=== PATIENT | male | born 1975 | race Caucasian/White ===

== ENCOUNTER 2020-02-23 08:09 | Day surgery (SDC) | payer OTHER ==
[~2020-02-23] VITALS: Ht 182.9 cm; Wt 110.5 kg
[~2020-02-23 08:09] MED LIST: AMLO5 PO; AMOCLA875 PO; ASPI81EC PO; Accupril20 MG PO; BUPRENORPHIN-N1 EACH SL; CARV25 PO; CETI5 PO; CHOL10002; Crestor20 MG PO; Crestor40 MG PO; FEBU40TA; FEBU40TA PO; GABA300 PO; IBUP800 PO; METO50 PO; NITR.6SL SL; OXYC10TA19; Oxycodone HCl5 M1; Percocet 5-3251 EACH PO; QUIN10 PO; ROSU10TA PO; VITAMIN D22000 UNIT PO; ZYRTEC10 M1 PO
== END 2020-02-23 10:05 | disposition home or self-care (01) ==
LOC: ORSCSDS 08:09
PROVIDERS: Internal Medicine Gastroenterology
PROC: 0DJD8ZZ Inspection of Lower Intestinal Tract, Via Natural or Artificial Opening Endoscopic (ICD-10-PCS; principal; 2020-02-23 09:15)
DX: Z12.11 Encounter for screening for malignant neoplasm of colon (principal); Z80.0 Family history of malignant neoplasm of digestive organs; K57.30 Diverticulosis of large intestine without perforation or abscess without bleeding; K64.1 Second degree hemorrhoids; I10 Essential (primary) hypertension; I25.10 Atherosclerotic heart disease of native coronary artery without angina pectoris; G47.33 Obstructive sleep apnea (adult) (pediatric); Z79.82 Long term (current) use of aspirin; Z79.899 Other long term (current) drug therapy; E66.9 Obesity, unspecified; Z68.32 Body mass index [BMI] 32.0-32.9, adult
CPT/HCPCS: J0330; J0461; J2001; J2405; J2704; J7120

== ENCOUNTER → 2024-02-23 | Outpatient (CLI) | payer OTHER | LOC: LAB SHORT 11:40 → LAB 11:40 | DX: L08.9 Local infection of the skin and subcutaneous tissue, unspecified (principal) | CPT/HCPCS: 87070; 87077; 87147; 87186; 87205 ==